=== PATIENT | male | born 1980 | race Caucasian/White ===

== ENCOUNTER 2022-01-24 21:11 | Emergency (ER) | payer OTHER ==
[2022-01-24 21:20] VITALS: BP 113/74; PULSE 65; TEMP 98.6; BMI 29.2
[2022-01-24] MEDS ORDERED: DIPHTH,PERTUSS(ACELL),TET 0.5 ML DISP.SYRIN IM ONE ×2 (22:20→22:38)
== END 2022-01-24 22:56 | disposition home or self-care (01) ==
LOC: JERFT 21:11
PROC: 0HQGXZZ Repair Left Hand Skin, External Approach (ICD-10-PCS; principal; 2022-01-24)
PROC: 3E0234Z Introduction of Serum, Toxoid and Vaccine into Muscle, Percutaneous Approach (ICD-10-PCS; 2022-01-24)
DX: S61.412A Laceration without foreign body of left hand, initial encounter (principal); W26.0XXA Contact with knife, initial encounter
CPT/HCPCS: 90715; 99282-25

== ENCOUNTER 2022-01-30 08:45 | Emergency (ER) | payer OTHER ==
[2022-01-30 09:40] VITALS: BP 109/67; PULSE 65; TEMP 97.9; BMI 22.6
== END 2022-01-30 09:35 | disposition home or self-care (01) ==
LOC: JERFT 08:45 → JER 08:45 → JERFT 09:35
DX: S61.012A Laceration without foreign body of left thumb without damage to nail, initial encounter (principal); Y99.9 Unspecified external cause status; Z48.02 Encounter for removal of sutures
CPT/HCPCS: 99281-25